=== PATIENT | female | born 1945 | race Caucasian/White ===

== ENCOUNTER 2019-08-11 22:27 | Inpatient (IN) | payer OTHER ==
[~2019-08-11] VITALS: Ht 170.2 cm; Wt 78.9 kg
[2019-08-11 22:30] VITALS: BP_SYST 167
[2019-08-11] MEDS ORDERED: ROPI2TAB29 PO (22:37)
[2019-08-11] MEDS ORDERED: LEVO5TAB13 PO (22:38)
[2019-08-11] MEDS ORDERED: SERT-131 PO (22:39)
[2019-08-11] MEDS ORDERED: ZOLP10TA2 PO (22:39)
[2019-08-11] MEDS ORDERED: PANT20TA3 PO (22:40)
[2019-08-11] MEDS ORDERED: GABA-531 PO (22:40)
[2019-08-11] MEDS ORDERED: BUPR300T55 PO (22:41)
[2019-08-11] MEDS ORDERED: ALBMDI INH (22:42)
[2019-08-11] MEDS ORDERED: FENO54TA4 PO (22:42)
--- NOTE | 2019-08-12 01:13 | NUR ---
Patient to ER bed 01 to gown for evaluation. Side rails up.
--- NOTE | 2019-08-12 01:15 | NUR ---
Pt BIB EMS with c/o SOB. Pt A&Ox4. Pt states SOB started "a few days ago and has gotten progressively worse." Pt states history of COPD. Pt states she is visiting from out of town and when she was traveling her medication fell out of bag. Pt states she takes 1 puff of truligy daily. Upon assessment, pt using accessory muscles to breath and wheezing heard bilaterally. Upon arrival, pt on 4L nasal cannula with oxygen saturation of 93%. Will continue to monitor.
[2019-08-12] MEDS ORDERED: NACL 0.9% 1,000 ML IV ONE (01:56)
[2019-08-12] MEDS ORDERED: methylPREDNISolone SOD SUCC/PF 62.5 MG/ML VIAL IVP ONE ×2 (02:00→02:15)
[2019-08-12] MEDS ORDERED: IPRATROPIUM BROM 0.5 MG/2.5 ML VIAL.NEB (ATROVENT) INH ONE (02:00)
[2019-08-12] MEDS ORDERED: LevALBUTEROL HCL 1.25 MG/0.5 ML *CONC.* VIAL.NEB (XOPENEX CONC.) INH ONE (02:00)
[2019-08-12] MEDS ORDERED: IPRATROPIUM/ALBUTEROL SULFATE 3 ML AMPUL.NEB (DUONEB) INH ONE (02:15)
--- NOTE | 2019-08-12 02:32 | NUR ---
radiology at bedside.
[2019-08-12 02:43] LABS: BASOPHILS % (AUTO) 0.3 % (0.0-2.0); EOSINOPHILS % (AUTO) 0.2 % (0.0-4.0); HEMATOCRIT 41.8 % (36-48); HEMOGLOBIN 13.8 g/dL (12.0-16.0); LYMPHOCYTES # (AUTO) 0.4 K/uL (1.0-5.5); LYMPHOCYTES % (AUTO) 4.4 % (20.5-51.5); MEAN CORPUSCULAR HEMOGLOBIN 30 pg (27-31); MEAN CORPUSCULAR HGB CONC 33 % (32-36); MEAN CORPUSCULAR VOLUME 90 fL (79.0-98.0); MONOCYTES % (AUTO) 10.7 % (1.7-9.3); NEUTROPHILS # (AUTO) 8.1 K/uL (1.8-7.7); NEUTROPHILS % (AUTO) 84.4 % (40.0-70.0); PLATELET COUNT (AUTO) 287 K/uL (130-430); RED BLOOD CELL COUNT(AUTO) 4.64 MIL/uL (4.2-6.2); RED CELL DISTRIBUTION WIDTH 14.2 % (9.0-15.0); WHITE BLOOD COUNT (AUTO) 9.6 K/uL (4.8-10.8)
[2019-08-12 02:47] LABS: ANION GAP 6 (5-15); CALCIUM 8.7 mg/dL (8.4-11.0); CHLORIDE 97 mmol/L (98-107); CREATININE 1.23 mg/dL (0.55-1.30); GLUCOSE 117 mg/dL (70-99); POTASSIUM 4.2 mmol/L (3.5-5.1); SODIUM SERUM 131 mmol/L (136-145); UREA NITROGEN, BLOOD 12 mg/dL (8-21)
[2019-08-12 02:53] LABS: ALANINE AMINOTRANSFERASE 26 U/L (12-78); ALBUMIN 3.9 g/dL (3.4-4.8); ASPARTATE AMINOTRANSFERASE 31 U/L (10-37); TOTAL BILIRUBIN 0.3 mg/dL (0.0-1.0)
[2019-08-12] MEDS ORDERED: ALBUTEROL SULFATE 0.083% 2.5 MG/3 ML VIAL.NEB INH ONE (03:00)
[2019-08-12] MEDS ORDERED: ACETAMINOPHEN 325 MG TABLET PO ONE (03:00)
[2019-08-12] MEDS ORDERED: MAGNESIUM SULFATE 1 GM in NS 50 ML IV ONE (03:00)
--- NOTE | 2019-08-12 03:30 | NUR ---
Pt medicated per MD orders. Pt tolerated well. Will continue to monitor.
[2019-08-12] MEDS ORDERED: MAGNESIUM SULFATE 1 GM/2 ML VIAL ONE (03:31)
--- NOTE | 2019-08-12 04:50 | NUR ---
Patient will be admitted to care of [facility]. Admitted to Telemetry unit. Will go to room 121C. Belongings list completed. Complete and up to date summary report printed. SBAR report to be given at bedside with opportunity for questions.
[2019-08-12 05:07] VITALS: BP_SYST 167
[2019-08-12] MEDS ORDERED: IPRATROPIUM BROM 0.5 MG/2.5 ML VIAL.NEB (ATROVENT) INH PRN (05:30)
--- NOTE | 2019-08-12 05:32 | NUR ---
Transfer to Telemetry room 121C via ACLS protocol. Licensed nurse present. IV present no signs or symptoms of infiltration.
--- NOTE | 2019-08-12 06:00 | NUR ---
RT at bedside drawing ABG on room air. Will continue to monitor.
--- NOTE | 2019-08-12 06:05 | NUR ---
Pt transfered to Telemetry room 121C via [facility] in stable condition with myself and Maru PULIDO.
[2019-08-12 06:19] VITALS: BP_SYST 138
[2019-08-12] MEDS ORDERED: cefTRIAXone 1 GM IVPB PREMIX 50 ML IV ONE (06:33)
--- NOTE | 2019-08-12 06:34 | NUR ---
Dontae ricks in [facility] - 08/12/19 at 0636 by CLINT Pt transfered to Telemetry room [facility] via stacey in stable condition with myself and Maru TECH.
[2019-08-12] MEDS: methylPREDNISolone SOD SUCC/PF 62.5 MG/ML VIAL IVP SCH ×3 (06:38→21:37)
[2019-08-12] MEDS: cefTRIAXone 1 GM in D5W 50 ML IV SCH (06:38)
--- NOTE | 2019-08-12 06:38 | NUR ---
ADMISSION ADMITTED PATIENT FROM ER WITH ADMITTING DIAGNOSIS OF COPD. PATIENT ORIENTED TO ROOM, CALL LIGHT SYSTEM, TELEPHONE AND BED CONTROLS. PATIENT STARTED ON ANTIBIOTIC AND SOLU MEDROL ORDERED. IV LINE PATENT TO RT AC. PATIENT NEEDS ATTENDED. CALL LIGHT WITH IN REACH. BED IN LOWEST LOCKED POSITION.
[2019-08-12] MEDS: IPRATROPIUM BROM 0.5 MG/2.5 ML VIAL.NEB (ATROVENT) INH SCH ×3 (06:59→20:25)
[2019-08-12 07:45] VITALS: BP_SYST 147
--- NOTE | 2019-08-12 07:45 | NUR ---
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
[2019-08-12] MEDS: SERTRALINE HCL 50 MG TABLET PO SCH (08:27)
[2019-08-12] MEDS: PANTOPRAZOLE SODIUM 40 MG TAB PO SCH (08:27)
[2019-08-12] MEDS: GABAPENTIN 300 MG CAPSULE PO SCH ×3 (08:27→19:52)
[2019-08-12] MEDS: AZITHROMYCIN 500 MG in NS 250 ML IV SCH (08:27)
--- NOTE | 2019-08-12 08:27 | NUR ---
Medication patient resting in bed, awake, denies pain, educated on scheduled medications uses and potential side effects, she verbalized understanding and tolerated well, IV line is patent and infusing well, provided with hygiene supplies, patient is able to ambulate to the restroom, re-educated on safety precautions, patient verbalized understanding, bed in lowest position, two side rails up, call light placed within reach, fall and aspiration precautions in place.
--- NOTE | 2019-08-12 10:15 | NUR ---
RN rounds patient resting in bed, asking for assistance to the restroom, assisted the patient she tolerated well and ambulated with assistance, patient had 1 BM, returned to bed, provided with new socks, no other needs at this time, bed in lowest position, two side rails up, bed close to nursing station, call light placed within patient reach, fall and aspiration precautions in place, IV line is patent and infusing well.
--- NOTE | 2019-08-12 10:48 | NUR ---
Nutrition Update Rey Scale 18 noted. Pt admitted for COPD. Diet: 2 gm Na BMI: 27.3 kg/m2 RD to follow per nutrition care standards.
--- NOTE | 2019-08-12 11:30 | NUR ---
RN rounds patient resting in bed, eyes closed, breathing is even and unlabored, no signs of distress, easy to wake, patient denies pain, no needs at this time, continuing to monitor, bed in lowest position, two side rails up, call light within reach, fall and aspiration precautions in place, bed moved away from nursing station due to noise concerns, re-educated patient on safety precautions she verbalized understanding at this time.
--- NOTE | 2019-08-12 14:00 | NUR ---
Transfer of Care to Jessica MOREAU.
--- NOTE | 2019-08-12 14:30 | NUR ---
Assumed Care: Received report from Alvin.Patient on the bed.Awake,alert and oriented x4.O2 3l/nc,good saturation. iv saline lock at right ac in place. No distress.
--- NOTE | 2019-08-12 16:00 | NUR ---
Rn Rounds: Resting. No problem.
[2019-08-12 16:07] VITALS: BP_SYST 145
--- NOTE | 2019-08-12 18:30 | NUR ---
Closing Notes: Patient had a dinner. Safety measures rendered.Bed locked at lowest position.Not in any respiratory distress.Condition guarded.
--- NOTE | 2019-08-12 18:33 | NUR ---
PAGED I PAGED DR. LISA @ [id number] I SPOKE WITH CECY EXCHANGE
--- NOTE | 2019-08-12 18:56 | NUR ---
PAGED I PAGED DR. LISA @ [phone] I SPOKE WITH CECY EXCHANGE
--- NOTE | 2019-08-12 19:10 | NUR ---
New Order: Spoke with Dr. Murguia with orders give Tylenol 650mg po every 6 hours prn for mild pain.
--- NOTE | 2019-08-12 19:20 | NUR ---
OPENING NOTES RECEIVED PATIENT IN BED AAO X4. BREATHING LABORED ON EXERTION ON 02 3L NC. PLAN OF CARE REVIEWED WITH PATIENT. BED IN LOWEST LOCKED POSITION. CALL LIGHT WITH IN REACH.
[2019-08-12 19:42] VITALS: BP_SYST 144
[2019-08-12] MEDS: ACETAMINOPHEN 325 MG TABLET PO PRN (19:52)
--- NOTE | 2019-08-12 19:52 | NUR ---
PAIN MGT PATIENT DUE MEDICATIONS GIVEN. MEDICATED WITH TYLENOL FOR C/O HEADACHE. VITAL SIGNS STABLE.
[2019-08-12] MEDS: LevALBUTEROL HCL 1.25 MG/0.5 ML *CONC.* VIAL.NEB (XOPENEX CONC.) INH PRN (20:25)
--- NOTE | 2019-08-12 21:37 | NUR ---
MED PASS PATIENT DUE SOLUMEDROL GIVEN. IV LINE INTACT AND PATENT. DENIES PAIN THIS TIME.
[2019-08-13 00:08] VITALS: BP_SYST 137
--- NOTE | 2019-08-13 00:08 | NUR ---
ROUNDS PATIENT RESTING IN BED. HS SNACK PROVIDED PER PATIENT REQUEST. VITAL SIGNS STABLE.
[2019-08-13] MEDS: IPRATROPIUM BROM 0.5 MG/2.5 ML VIAL.NEB (ATROVENT) INH SCH ×4 (01:20→19:10)
[2019-08-13] MEDS: LevALBUTEROL HCL 1.25 MG/0.5 ML *CONC.* VIAL.NEB (XOPENEX CONC.) INH PRN (01:20)
--- NOTE | 2019-08-13 02:59 | NUR ---
ROUNDS PATIENT RESTING IN BED. BREATHING UNLABORED. CALL LIGHT WITH IN REACH.
--- NOTE | 2019-08-13 04:30 | NUR ---
ROUNDS PATIENT AWAKE. DENIES PAIN. BREATHING UNLABORED.
[2019-08-13] MEDS: cefTRIAXone 1 GM in D5W 50 ML IV SCH (05:33)
[2019-08-13] MEDS: methylPREDNISolone SOD SUCC/PF 62.5 MG/ML VIAL IVP SCH ×3 (05:33→22:10)
--- NOTE | 2019-08-13 05:33 | NUR ---
MED PASS PATIENT DUE MEDS GIVEN. IV LINE INTACT AND PATENT WITH ANTIBIOTIC INFUSING.
--- NOTE | 2019-08-13 06:24 | NUR ---
CLOSING NOTES PATIENT NEEDS ATTENDED. NO CHANGE IN PATIENT CONDITION. BED IN LOWEST LOCKED POSITION. CALL LIGHT WITH IN REACH.
--- NOTE | 2019-08-13 07:00 | NUR ---
OPENING NOTES PT AWAKE, ALERT, AND ORIENTED. HOB ELEVATED. NO ACUTE DISTRESS NOTED. NONLABORED BREATHING NOTED. NASAL CANNULA INTACT AND PATENT. OXYGEN RUNNING ORDERED PER MD, TOLERATING WELL. BED IN LOWEST AND LOCKED POSITION. ALL NEEDS MET. CALL LIGHT IN REACH. CONTINUE TO MONITOR.
[2019-08-13 08:00] VITALS: BP_SYST 140
[2019-08-13] MEDS: GABAPENTIN 300 MG CAPSULE PO SCH ×3 (08:50→20:43)
[2019-08-13] MEDS: PANTOPRAZOLE SODIUM 40 MG TAB PO SCH (08:50)
[2019-08-13] MEDS: SERTRALINE HCL 50 MG TABLET PO SCH (08:50)
[2019-08-13] MEDS: AZITHROMYCIN 500 MG in NS 250 ML IV SCH (08:50)
--- NOTE | 2019-08-13 08:50 | NUR ---
ROUTINE MEDS ROUTINE MEDS ADMINISTERED ORDERED PER MD. HOB ELEVATED. EDUCATION GIVEN, TOLERATED WELL. NO ACUTE DISTRESS NOTED. ALL NEEDS MET. CALL LIGHT IN REACH. FALL AND ASPIRATION PRECAUTIONS IN PLACE. CONTINUE TO MONITOR.
--- NOTE | 2019-08-13 10:20 | NUR ---
SEEN AND EXAMINED BY AT BEDSIDE
--- NOTE | 2019-08-13 10:37 | NUR ---
CONSULTATION REQUESTING MD: DR. LISA CONSULTING MD: DR. RADFORD NOTIFIED DR. RADFORD AT NURSING STATION CONSULT FOR COPD
--- NOTE | 2019-08-13 10:55 | NUR ---
SEEN AND EXAMINED BY AT BEDSIDE
--- NOTE | 2019-08-13 11:00 | NUR ---
ROUNDS PT AWAKE AND ALERT. NO ACUTE DISTRESS NOTED. ALL NEEDS MET. CALL LIGHT IN REACH. CONTINUE TO MONITOR.
[2019-08-13] MEDS: ACETAMINOPHEN 325 MG TABLET PO PRN ×2 (11:42→22:53)
--- NOTE | 2019-08-13 11:42 | NUR ---
PRN MEDS PRN MEDS ADMINISTERED ORDERED PER MD. EDUCATION GIVEN, TOLERATED WELL. NO ACUTE DISTRESS NOTED. ALL NEEDS MET. CALL LIGHT IN REACH. CONTINUE TO MONITOR.
[2019-08-13 12:37] VITALS: BP_SYST 143
[2019-08-13] MEDS: LevALBUTEROL HCL 1.25 MG/0.5 ML *CONC.* VIAL.NEB (XOPENEX CONC.) INH SCH ×2 (13:33→19:10)
--- NOTE | 2019-08-13 13:50 | NUR ---
NOTE ASSISTED PATIENT TO BATHROOM, CONSUELO WELL WITH STEADY GAIT. NO ACUTE DISTRESS. ALL NEEDS MET. CALL LIGHT IN REACH. CONT TO MONITOR. CALL LIGHT IN REACH
--- NOTE | 2019-08-13 15:00 | NUR ---
NOTE PATIENT SITTING UP IN BED WATCHING TV. STABLE AT THIS TIME. ALL NEEDS MET. CALL LIGHT IN REACH. CONT TO MONITOR
[2019-08-13 16:48] VITALS: BP_SYST 134
--- NOTE | 2019-08-13 17:20 | NUR ---
NOTE PATIENT WALKING BACK AND FORTH NEAR BED TALKING ON CELL PHONE. STABLE. NO ACUTE DISTRESS. ALL NEEDS MET. CALL LIGHT IN REACH. CONT TO MONITOR
--- NOTE | 2019-08-13 19:00 | NUR ---
CLOSING NOTE PT AWAKE, ALERT, AND ORIENTED X4. NONLABORED BREATHING. NO ACUTE DISTRESS NOTED. NASAL CANNULA INTACT AND PATENT AND RUNNING ORDERED PER MD. TOLERATING WELL. BED IN LOWEST AND LOCKED POSITION. ALL NEEDS MET. CALL LIGHT IN REACH. FALL AND ASPIRATION PRECAUTIONS IN PLACE. WILL ENDORSE TO NOC NURSE.
--- NOTE | 2019-08-13 19:30 | NUR ---
Initial Notes Received handoff report from offgoing nurse. Patient AAOx4, resting comfortably in bed. Son is at the bedside. Bed is locked, lowest position, 2x side rails up. Refuses bed alarm at this time. Patient currently sitting up at the edge of the bed, positive affect, talking with her son. No SOB on room air, no acute distress, no complaints of pain. Call light is within reach. Encouraged patient to call for assistance. Will continue with plan of care.
[2019-08-13 20:00] VITALS: BP_SYST 158
--- NOTE | 2019-08-13 22:30 | NUR ---
Patient resting comfortably in bed. AAOx4. No SOB, no acute distress. Patient stated that she would like oxygen for when she goes to sleep. Assisted patient to apply nasal cannula on for comfort at 1L. Call light is within reach. Encouraged patient to call for assistance.
--- NOTE | 2019-08-14 00:47 | NUR ---
Patient AAOx4. Currently using personal touchscreen device. No SOB, no acute distress, no signs of pain or facial grimacing noted. On 1L NC. Bed is locked, lowest position, 2x side rails up, bed alarm is on. Call light is within reach. Encouraged patient to call for assistance. Will continue with plan of care.
[2019-08-14 00:58] VITALS: BP_SYST 142
[2019-08-14] MEDS: LevALBUTEROL HCL 1.25 MG/0.5 ML *CONC.* VIAL.NEB (XOPENEX CONC.) INH SCH ×4 (01:14→19:39)
[2019-08-14] MEDS: IPRATROPIUM BROM 0.5 MG/2.5 ML VIAL.NEB (ATROVENT) INH SCH ×4 (01:14→19:40)
--- NOTE | 2019-08-14 03:00 | NUR ---
RESTING COMFORTABLY IN BED. VISIBLE CHEST RISE AND FALL NOTED. STABLE. WILL CONTINUE WITH PLAN OF CARE.
--- NOTE | 2019-08-14 05:00 | NUR ---
PATIENT RESTING COMFORTABLY IN BED. EYES CLOSED. BREATHING EVEN AND UNLABORED. VISIBLE CHEST RISE AND FALL NOTED. NO SOB, NO ACUTE DISTRESS, NO SIGNS OF PAIN OR FACIAL GRIMACING NOTED. BED IS LOCKED, LOWEST POSITION, 2X SIDE RAILS UP, BED ALARM IS ON. CALL LIGHT WITHIN REACH.
[2019-08-14] MEDS: methylPREDNISolone SOD SUCC/PF 62.5 MG/ML VIAL IVP SCH ×3 (05:45→21:15)
[2019-08-14] MEDS: cefTRIAXone 1 GM in D5W 50 ML IV SCH (05:46)
--- NOTE | 2019-08-14 06:17 | NUR ---
DR WAQAR MONROE AT THE [employer]. INFORMED HIM THAT THE PATIENT MEETS SEPSIS RISK. DR MONROE ORDERED LACTIC ACIDS TO BE DRAWN STAT. DR MONROE DOES NOT WANT TO START FLUID AT THIS TIME, STATING THAT IF THE LACTIC ACID IS NORMAL, THE PATIENT WILL LIKELY GO HOME AFTER RECEIVING THE NEXT DOSE OF ANTIBIOTICS. Addendum: 08/14/19 at 0626 by Rebekah Rain RN ERROR* WRONG PATIENT
--- NOTE | 2019-08-14 06:24 | NUR ---
PATIENT RESTING COMFORTABLY IN BED. AAOX4, NO SOB, NO ACUTE DISTRESS, NO SIGNS OF PAIN OR FACIAL GRIMACING NOTED. BED IS LOCKED, LOWEST POSITION, 2X SIDE RAILS UP, REFUSES BED ALARM AT THIS TIME. CALL LIGHT IS WITHIN REACH. ENCOURAGED PATIENT TO CALL FOR ASSISTANCE. WILL ENDORSE CARE TO ONCOMING DAYSHIFT NURSE.
[2019-08-14 07:45] VITALS: BP_SYST 164
--- NOTE | 2019-08-14 07:45 | NUR ---
INITIAL ROUNDS Received pt AAOx4, no s/s resp distress, no c/o pain or discomfort. Pt receiving breathing treatment currently. Plan of care for the day reviewed with pt-pt verbalized her understanding. Pain management, disease process, skin and safety discussed-teach back done. Call light within reach.
[2019-08-14] MEDS: SERTRALINE HCL 50 MG TABLET PO SCH (08:59)
[2019-08-14] MEDS: GABAPENTIN 300 MG CAPSULE PO SCH ×3 (08:59→21:15)
[2019-08-14] MEDS: PANTOPRAZOLE SODIUM 40 MG TAB PO SCH (08:59)
[2019-08-14] MEDS: AZITHROMYCIN 500 MG in NS 250 ML IV SCH (09:00)
--- NOTE | 2019-08-14 10:30 | NUR ---
Discharge Planning: [facility] faxed pt referral to [facility] (f [phone]), also [facility] faxed O2 form for Dr. Brown to request signanture and to fax back to [facility]. [facility] to follow up. Addendum: 08/14/19 at 1630 by Kim [address] [facility] spoked to Dr Brown she signed the form oxygenAkash Vivar from [facility] (f [phone] p [phone]) spoke to patient in room regarding time mckeon when a portable concentrator would be available. Patient will have oxygen set up at a friends home. Patient will stay there ti stable to fly and concentrator is delivered. Patient
--- NOTE | 2019-08-14 11:26 | NUR ---
ROUNDS Pt sitting up in bed with no s/s resp distress, no c/o pain or discomfort. Pt given form for contrast to fill out and a pen. Call light within reach.
[2019-08-14 12:39] VITALS: BP_SYST 158
[2019-08-14 16:27] VITALS: BP_SYST 159
--- NOTE | 2019-08-14 19:06 | NUR ---
CLOSING NOTE Pt sitting up in bed with no s/s resp distress, no c/o pain or discomfort. Pt did ask for the results of her tests to be told to Dr. Brown so pt can determine if she is being discharged soon-pt lives in [place]. [facility] dept called for any results-none available in eMar at this time-but no answer at his time. Will endorse to next shift RN. Needs met, call light within reach.
[2019-08-14 20:00] VITALS: BP_SYST 162
--- NOTE | 2019-08-14 20:00 | NUR ---
REPORT RECIEVED @ START OF SHIFT, PATIENT A/O/X/4, RESPIRATIONS EVEN AND UNLABORED, O2 @ 3L/M VIA NC,S/L PATENT AND INTACT IN RIGHT HAND,TOLERATING PO AND SOLID FOOD WITHOUT DIFFICULTY, AMBULATES TO RESTROOM, VOIDING CLEAR YELLOW URINE, STATES HER LEGS MORE RIGHT THAN LEFT ACHES, TYLENOL OFFERED BUT PATIENT REFUSED, CALL PLACED TO DR. LISA BY [facility] AWAITING CALL BACK, SR'S UP X'S 2, CALL LIGHT WITHIN REACH, WILL CVONTINUE TO MONITOR FOR S/S OF DISTRESS, SR ON TELE MONITOR.
[2019-08-14] MEDS: guaiFENesin ER 600 MG TAB PO SCH (21:14)
--- NOTE | 2019-08-14 22:22 | NUR ---
PAGED PAGED DOCTOR LISA.
[2019-08-14 23:12] VITALS: BP_SYST 167
--- NOTE | 2019-08-15 | NUR ---
RESTING QUIETLY IN BED WITH EYES OPEN, WATCHING TV, STATES HAS HEADACHE, MEDICATED WITH TYLENOL 650 MG PO, NO NOTED CHANGES IN PRESENT CONDITION, WILL CONTINUE TO MONITOR FOR S/S OF DISTRESS.
[2019-08-15] MEDS: IPRATROPIUM BROM 0.5 MG/2.5 ML VIAL.NEB (ATROVENT) INH SCH ×3 (01:56→13:45)
[2019-08-15] MEDS: LevALBUTEROL HCL 1.25 MG/0.5 ML *CONC.* VIAL.NEB (XOPENEX CONC.) INH SCH ×3 (01:56→13:45)
[2019-08-15] MEDS: ACETAMINOPHEN 325 MG TABLET PO PRN (01:59)
--- NOTE | 2019-08-15 04:00 | NUR ---
EASILY AROUSED FROM RESTING IN BED, STATES HEADACHE AND LEG DISCOMFORT FINALLY GONE AND COULD FALL ASLEEP, WILL CONTINUE TO MONITOR CLOSELY FOR ANY FURTHER S/S OF DISTRESS
[2019-08-15 04:06] VITALS: BP_SYST 159
[2019-08-15] MEDS: cefTRIAXone 1 GM in D5W 50 ML IV SCH (06:17)
[2019-08-15] MEDS: methylPREDNISolone SOD SUCC/PF 62.5 MG/ML VIAL IVP SCH ×2 (06:19→14:04)
--- NOTE | 2019-08-15 08:00 | NUR ---
RN INITIAL NOTES RECEIVE PATIENT IN BED ALERT VERBAL AND COUGHING NO DISTRESS SATING 97%, WILL HAVE BREATHING TX, AMBULATORY AND BRP, STATED SHE IS ANXIOUSLY WANTING TO GO HOME
[2019-08-15 08:30] VITALS: BP_SYST 157
[2019-08-15] MEDS: PANTOPRAZOLE SODIUM 40 MG TAB PO SCH (08:53)
[2019-08-15] MEDS: GABAPENTIN 300 MG CAPSULE PO SCH ×2 (08:53→14:05)
[2019-08-15] MEDS: guaiFENesin ER 600 MG TAB PO SCH (08:53)
[2019-08-15] MEDS: SERTRALINE HCL 50 MG TABLET PO SCH (08:54)
[2019-08-15] MEDS: AZITHROMYCIN 500 MG in NS 250 ML IV SCH (08:55)
--- NOTE | 2019-08-15 10:00 | NUR ---
ROUNDS PATIENT COOPERATES WITH CM SPOKE WITH PATIENT AND MADE AWARE OXYGEN WILL BE DELIVERED BETWEEN 2 TO 4 PM TODAY THEN SHE COULD BE DC , WILL FOLLOW UP
[2019-08-15] MEDS ORDERED: AMOX-426 PO (12:05)
[2019-08-15] MEDS ORDERED: PRED20TA PO (12:05)
--- NOTE | 2019-08-15 12:11 | NUR ---
DC PLANNING Spoke w pt @ bedside, anxious to dc & go home w her friend. States going to go stay w friend upon dc until next week when O2 set up in her home in [place]. States she spoke conor Petersen from [facility] yest & is setting it all up. Per pt gave Nicola her friends address to set up concentrator. Order to dc home with home O2, Called & spoke conor Petersen from [facility], ph [phone], & informed have dc order, states will be here bet 2 & 4pm to deliver portable O2 to pt. Updated pt's nurse. Address of friend: [address] [place] [address] [address] [place] [id number] Addendum: 08/15/19 at 1450 by Wendy Hubbard RN Nicola from [facility] here, dropped off portable O2 to pt's bedside. States will be dropping of concentrator to friend in [place] & portable O2 for airplane will be given to pt next week.
[2019-08-15 12:23] VITALS: BP_SYST 154
[2019-08-15 12:28] VITALS: BP_SYST 151
--- NOTE | 2019-08-15 14:00 | NUR ---
PHARMACY CALLED PHARMACY AND SPOKE WITH KELLY PHARMACIST AND STATED THAT AUGMENTIN ATB IS NOT READY D/T PATIENT IS ALLERGIC TO PCN,BUT THE PREDNISONE IS READY , PER KELLY THEY CALLED DR LISA OFFICE SPOKE WITH SERGIO AND ADVISED DR LISA TO CALL THE PHARMACY , INFORMED PATIENT , I CALLED DR LISA OFFICE MYSELF AND SPOKE WITH CANDIE EXPLAINED THAT MD NEEDS TO CALL THE PHARMACY,PER PHARMACY THEY WILL CALL THE PATIENT IF MEDICATION IS READY, INFORMED CHARGE NURSE ABOUT THE CIRCUMSTANCES
--- NOTE | 2019-08-15 15:58 | NUR ---
PULMONOLOGY ROUNDS PATIENT INFORMED ABOUT PATIENT ALLERGY WITH PCN AND THAT PATIENT NEEDS TO GO HOME WITH MEDICINE READY ON HER WAY BUT CANT DISPENSE AUGMENTIN , DR RADFORD WILL SEE PATIENT , CHARGE NURSE MADE AWARE
--- NOTE | 2019-08-15 16:10 | NUR ---
CHANGE OF ATB CALLED [facility] AGAIN SPOKE AND VERIFIED TO THE PHARMACY REGARDING AUGMENTIN AND PATIENT ALLERGY TO IT AND WILL CAHNGE WITH NEW MEDS, PER PHARMACY DR LISA ALREADY CHANGED THE AUGMENTIN TO [facility] AND THE MEDS IS READY FOR ASSOCIATE JAVA DEVELOPER, RX GIVEN BY DR RADFORD OF DOXYCYCLINE DELETED , INFORMED PATIENT MEDS IS READY FOR ASSOCIATE JAVA DEVELOPER, CHARGE NURSE MADE AWARE .
[2019-08-15 16:16] VITALS: BP_SYST 157
--- NOTE | 2019-08-15 17:08 | NUR ---
D/C Patient Patient given medication reconciliation form and D/C instructions. Exit Care provided. Patient verbalized understanding. MD discussed with patient the results and treatment provided. Ambulatory with steady gait for discharge to home patient offere wheelcahair and insisted walking with family of 4, staedy gait no distress and no sob noted , home with poratble tank and [facility] will follow up in 3 days to deliver O2 Tank that is FDA approved to bring along tot he airlaple when she fly [facility]. Patient in stable condition, ID band removed. IV catheter removed, intact and dressing applied, no active bleeding. 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 All belongings sent with patient.
--- NOTE | 2019-08-21 13:03 | NUR ---
Discharge Follow Up Phone Call Phoned the number listed for patient, , but it was a non working number. Called the number listed as patient's sister's home number, . Spoke with a friend, who stated that she did not think patient has returned to [place] yet and the correct number for sister, Lisa, is [phone]. Phoned Lisa and left a voicemail message asking how patient was doing and offered assistance if needed and Social Service contact information. Will remain available.
== END 2019-08-15 16:50 | disposition home health service (06) | DRG 189 ==
LOC: SED 22:27 → STU 08-12 04:45
PROVIDERS: ADMIT Internal Medicine Hospice and Palliative Medicine; ATTEND Internal Medicine Hospice and Palliative Medicine
DX: J96.01 Acute respiratory failure with hypoxia (principal); J44.1 Chronic obstructive pulmonary disease with (acute) exacerbation; E87.1 Hypo-osmolality and hyponatremia; I10 Essential (primary) hypertension; F17.210 Nicotine dependence, cigarettes, uncomplicated; E78.5 Hyperlipidemia, unspecified; F41.9 Anxiety disorder, unspecified; Z85.51 Personal history of malignant neoplasm of bladder; Z85.528 Personal history of other malignant neoplasm of kidney; Z90.5 Acquired absence of kidney; Z90.49 Acquired absence of other specified parts of digestive tract; Z91.040 Latex allergy status; Z79.899 Other long term (current) drug therapy; Z88.0 Allergy status to penicillin
CPT/HCPCS: 36415; 36600; 71045; 78579; 78580-TC; 80053; 82803-TC; 85025; 94640; 94760; 99285; A9539; A9540; G0378; J0456; J0696; J2930; J3475; J7050; J7060; J7612; J7613; J7620